=== PATIENT | male | born 1975 ===

== ENCOUNTER 2018-03-19 17:16 | Emergency (ER) | payer SELFPAY ==
--- NOTE | 2018-03-19 17:57 | ED PDOC ---
Arrival/HPI - General Historian: Patient, EMS - History of Present Illness Narrative History of Present Illness (Text): 03/19/18 17:52 43yo male with history of alcohol abuse bib EMS for alcohol intoxication. Per EMS patient was found intoxicated on the street and brought to the ED. Patient admits to drinking unknown amount of alcohol today. Patient was just discharged from the ED this morning for alcohol intoxication. He denies any somatic complaint. <Pratima Diamond A - Last Filed: 03/19/18 21:21> <Sylvain Jackson - Last Filed: 03/21/18 15:26> - General Chief Complaint: Alcohol Ingestion Time Seen by Provider: 03/19/18 17:49 Past Medical History - Provider Review Nursing Documentation Reviewed: Yes - Infectious Disease Hx of Infectious Diseases: None - Psychiatric Hx Substance Use: No - Anesthesia Hx Anesthesia: No <Pratima Diamond A - Last Filed: 03/19/18 21:21> Family/Social History - Physician Review Nursing Documentation Reviewed: Yes Family/Social History: Unknown Family HX Smoking Status: Unknown If Ever Smoked Hx Alcohol Use: Yes Hx Substance Use: No <Pratima Diamond A - Last Filed: 03/19/18 21:21> Allergies/Home Meds <Pratima Diamond A - Last Filed: 03/19/18 21:21> <Sylvain Jackson - Last Filed: 03/21/18 15:26> Allergies/Adverse Reactions: Allergies No Known Allergies Allergy (Verified 03/19/18 17:34) Review of Systems - Review of Systems Systems not reviewed;Unavailable: Intoxicated <Pratima Diamond A - Last Filed: 03/19/18 21:21> Physical Exam Vital Signs Reviewed: Yes Vital Signs Temp Pulse Resp BP Pulse Ox 03/19/18 17:29 97.8 F 97 H 18 118/62 98 Temperature: Afebrile Blood Pressure: Normal Pulse: Regular Respiratory Rate: Normal Appearance: Positive for: Well-Appearing, Non-Toxic, Comfortable, Unkept Pain Distress: None Mental Status: Positive for: Alert and Oriented X 3, other (Alcohol breather) - Systems Exam Head: Present: Atraumatic, Normocephalic Pupils: Present: PERRL Extroacular Muscles: Present: EOMI Conjunctiva: Present: Normal Mouth: Present: Moist Mucous Membranes Neck: Present: Normal Range of Motion Respiratory/Chest: Present: Clear to Auscultation, Good Air Exchange. No: Respiratory Distress, Accessory Muscle Use Cardiovascular: Present: Regular Rate and Rhythm, Normal S1, S2. No: Murmurs Abdomen: No: Tenderness, Distention, Peritoneal Signs Back: Present: Normal Inspection Upper Extremity: Present: Normal Inspection. No: Cyanosis, Edema Lower Extremity: Present: Normal Inspection. No: Edema Neurological: Present: GCS=15, CN II-XII Intact, Speech Normal Skin: Present: Warm, Dry, Normal Color. No: Rashes Psychiatric: Present: Alert (Sleepy), Oriented x 3 (2), Normal Insight, Normal Concentration <Pratima Diamond A - Last Filed: 03/19/18 21:21> Vital Signs Temp Pulse Resp BP Pulse Ox 03/19/18 20:52 98.1 F 83 17 112/61 97 03/19/18 17:29 97.8 F 97 H 18 118/62 98 03/19/18 17:17 97.8 F 97 H 18 118/62 98 <Sylvain Jackson L - Last Filed: 03/21/18 15:26> Medical Decision Making ED Course and Treatment: 03/19/18 17:54 43yo male well known to the ED bib EMS for alcohol intoxication. He was AAO x3. sleepy but arousable and answering questions. He will be observe in ED pending sobriety. 03/19/18 18:30 Pt was ambulatory in ED with steady gait without help. He was AAO x3. He is stable for DC <Pratima Diamond A - Last Filed: 03/19/18 21:21> - PA / RENEWAL SPECIALIST / Resident Statement /DO has reviewed & agrees with the documentation as recorded. <Sylvain Jackson - Last Filed: 03/21/18 15:26> Disposition/Present on Arrival - Present on Arrival Any Indicators Present on Arrival: No History of DVT/PE: No History of Uncontrolled Diabetes: No Urinary Catheter: No History of Decub. Ulcer: No History Surgical Site Infection Following: None - Disposition Have Diagnosis and Disposition been Completed?: Yes Disposition Time: 18:30 Patient Plan: Discharge <Pratima Diamond A - Last Filed: 03/19/18 21:21> <Sylvain Jackson - Last Filed: 03/21/18 15:26> - Disposition Diagnosis: Alcohol intoxication Disposition: HOME/ ROUTINE Condition: STABLE Discharge Instructions (ExitCare): Alcohol Abuse and Alcoholism (DC) Additional Instructions: Join AA and stop drinking Return to ED for new symptoms Referrals: Alcoholics Anonymous [Outside] - Follow up with primary Forms: [employer] (Malay)
[2018-03-19 21:23] VITALS: BP 112/61; PULSE 83; RESP 17; TEMP 98.1; O2SAT 97
== END 2018-03-19 21:24 | disposition home or self-care (01) ==
LOC: ED 17:16
DX: F10.129 Alcohol abuse with intoxication, unspecified (principal)